=== PATIENT | female | born 1980 | race Hispanic/Latino ===

== ENCOUNTER 2018-01-07 09:24 | Emergency (ER) | payer OTHER, SELFPAY ==
[2018-01-07 09:25] VITALS: BP 105/62; PULSE 67; RESP 17; TEMP 36.8; O2SAT 98; BMI 29.8
--- NOTE | 2018-01-07 09:40 | EKG12_ITS ---
Test Reason : CP Blood Pressure : / mmHG Vent. Rate : 068 BPM Atrial Rate : 068 BPM P-R Int : 142 ms QRS Dur : 102 ms QT Int : 428 ms P-R-T Axes : 023 027 007 degrees QTc Int : 455 ms Normal sinus rhythm Normal ECG Confirmed by LUIS TELLO, RALEIGH ([id number]), index editor DUNCAN SCHNEIDER ([id number] on 01/09/2018 3:59:31 PM Referred By: COLBY/AMY Confirmed By:RALEIGH SMITH MD
[2018-01-07 10:02] VITALS: BP 105/75; BP 111/69; BP 112/73; PULSE 61; PULSE 73; PULSE 75
[2018-01-07] MEDS: 0.9% Normal Saline 1,000 ML 1000 ML IV ×2 (10:03)
[2018-01-07 10:08] LABS: Absolute Lymphocyte Count 1.85 X10^3/ul (0.83-4.51); Absolute Neutrophil Count 5.8 X10^3/uL (2.0-7.7); Basophil# 0.03 X10^3/uL; Basophil% 0.4 % (0-1); Eosinophil# 0.02 X10^3/uL; Eosinophils% 0.2 % (0-5); Hematocrit 36.3 % (37-47); Lymphocyte # 1.85 X10^3/ul (4.0); Lymphocyte % 22.8 % (19-41); Mean Corp Hgb Conc 33.1 g/gl (32-36); Mean Corpuscular Hgb 28.9 pg (27.0-32.0); Mean Corpuscular Volume 87.5 fL (81-99); Monocyte% 4.9 % (0-10); Neutrophil # 5.81 X10^3/uL (2.7-7.7); Neutrophil % 71.6 % (47-70); Platelet Count 199 K/mm3 (150-450); RBC Distribution Width SD 41.5 fl (35.1-43.9); Red Blood Count 4.15 M/mm3 (4.2-5.4); White Blood Count 8.1 K/mm3 (4.4-11.0)
[2018-01-07 10:11] LABS: POSITIVE COUNT NO; POSITIVE DIFFERENTIAL NO; POSITIVE MORPHOLOGY NO
[2018-01-07 10:21] LABS: Anion Gap 6 (5-15); BUN 14 mg/dL (7-18); BUN/Creat Ratio 23.6 RATIO (10-20); Calcium,Total 8.7 mg/dL (8.5-10.1); Chloride 109 mmol/L (98-107); Creatinine, Serum 0.59 mg/dL (0.55-1.02); EST Glomerular Filtration Rate 120 mL/min (>60); Est Glom Filt Rate - Afr Amer 145 mL/min (>60); Estimated Creatinine Clearance 101.25 ml/min; Glucose 94 mg/dL (74-106); Potassium 3.6 mmol/L (3.5-5.1); Sodium Level 141 mmol/L (136-145)
[2018-01-07 10:22] LABS: Pregnancy, Serum, hCG Quali. NEGATIVE Negative (0-9 Nonpreg)
--- NOTE | 2018-01-07 10:55 | ED.VISSUMM ---
- ER Visit Summary Date of Service: 01/07/18 Chief Complaint: Weakness in legs, syncope History of Present Illness: The patient is a [address] Matthew montes. 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 She denied any injuries. Patient reports that this episode was preceded by diaphoresis, nausea, mild shortness of breath, palpitations, and chest pain that was 6 out of 10 at worst. States chest pain lasted 3-4 minutes. She is not having any pain now. On review of systems patient planes of a headache that is 1 out of 10 severity and generalized weakness. She denies any other complaints. Physical Examination: Vitals: Stable. Afebrile. General: Well-nourished and well-developed. Head: Normocephalic atraumatic. Neck: Supple, no lymphadenopathy. No JVD. Nontender. Cardiovascular: Regular rate and rhythm. No murmurs. Respiratory: No respiratory distress. Clear to auscultation bilaterally. Abdominal: Soft, nontender, nondistended, normal bowel sounds. No guarding, rebound, or peritoneal signs. Back: Nontender. Extremities: Nontender, no edema. Skin: Normal color, no rash. Neurologic: Alert and oriented ?3. Cranial nerves II through XII are intact. Normal strength and sensation. Psych: Normal affect. Test Results: EKG is sinus at 60 with no acute changes. There is no old EKG for comparison. Troponin is negative. test negative. Chem-7 is more for chloride 109 and a BUN/creatinine ratio of 23.6. CBC is marked for hematocrit 36.3 and segmented for the 72. Emergency Department Course and Treatment: Patient had negative orthostatic vital signs. She was given 2 L normal saline and feels much improved. Treatment Plan: Patient be discharged instructions push fluids. Follow-up with her primary care physician, Dr. Matthew montes, in 1-2 days if not improving. Return to the emergency department for any worsening symptoms. Disposition: To home in improved and stable condition. Impression: 1. Dehydration. This note was generated with Tipstar[employer] software. It may contain incorrect words, spelling, and punctuation that were not noted in review of the chart prior to signing ED Disposition - Plan for ED Patient: Disposition: Home or Assisted Living Chief Complaint: Syncope Instructions: ED Dehydration Referrals: Morgan Saunders MD [Primary Care Provider] - 1-2 Days if not improving Print Language: Turkish
[2018-01-07 11:24] VITALS: BP 107/72; PULSE 60; RESP 18; O2SAT 98
== END 2018-01-07 11:27 | disposition home or self-care (01) ==
LOC: ED 09:51
PROVIDERS: Emergency Provider Emergency Medicine; Family Provider Family Medicine; PCP Family Medicine
DX: E86.0 Dehydration (principal)
CPT/HCPCS: 80048; 84484; 84703; 85025; 93005; 99285; J7030

== ENCOUNTER 2018-08-01 08:10 | Day surgery (SDC) | payer OTHER, SELFPAY ==
[2018-06-06 16:31] VITALS: BMI 29.8
--- NOTE | 2018-07-31 23:40 | HP.PCM_ITS ---
History and Physical Date of Admission: 08/01/18 HISTORY OF PRESENT ILLNESS 37 year old woman comes in today for evaluation of her painful recurrent keloid right earlobe and superior helical rim right ear. She states it has increased in size over the last several months. She denies any trauma or recent infection. She has had keloids excised from the right ear in the past, the most recent in March,. She has multiple other keloids on the left posterior earlobe, superior helical rim left ear, right upper lateral back, right upper medial back, left outer arm, and left shoulder that are stable and nontender at this time. She presents at this time for further evaluation and treatment. PAST MEDICAL HISTORY keloid of skin PAST SURGICAL HISTORY delivery delivered Cyst of ovary surgery History of excision of lesion ALLERGIES No Known Allergies MEDICATIONS None. FAMILY HISTORY Mother - Diabetes Father - Heart disease Brother - Heart disease SOCIAL HISTORY Smoking Status: Never smoker alcohol intake: never substance use type: does not use REVIEW OF SYSTEMS General - Denies fever, fatigue and weight loss. Eyes - Denies eye pain. ENT - Denies nasal congestion and sore throat. has painful keloid lesions on her bilateral ear lobes and helical rims CV - Denies chest pain or discomfort, fatigue, lightheadedness and shortness of breath with exertion. Resp - Denies cough and shortness of breath. GI - Denies nausea, vomiting, diarrhea and constipation. - Denies blood in urine and urinary frequency. MS - Denies joint pain, back pain, stiffness, muscle weakness and arthritis. Derm - Denies skin cancer. Has painful recurrent keloid lesions on right ear lobe and right superior helical rim. Has stable keloid left posterior ear lobe, left superior helical rim, left shoulder, right upper lateral back, right upper medial back, and left outer arm. The lesions on her ears were previously excised by Dr. Castle. The lesions on her back have been excised twice now, once in [place] and once by Dr. Castle with acellular dermal graft. Neuro - Denies headaches and weakness. Psych - Denies anxiety and depression. Endo - Denies excessive urination and excessive thirst. Heme - Denies bleeding and abnormal bruising. PHYSICAL EXAMINATION General: well developed, well nourished, in no acute distress. Head: normocephalic and atraumatic. No suspicious lesions noted Eyes: PERRL/EOM intact, conjunctiva and sclera clear. Ears: On her right ear lobe is a recurrent keloid that measures 3.2 cm. Tender to palpation. Has irregular borders. No ulceration. On the superior helical rim right ear is a recurrent keloid that measures 2.2 cm. Tender to palpation. Has irregular borders. No ulceration. On the left posterior ear lobe is a lesion that shows mild thickening. Nontender. Has a keloid component. No evidence of cellulitis, fluctuance, or purulent drainage. No ulceration. On the superior helical rim left ear is a lesion that shows mild thickening. Nontender. Has a keloid component. No evidence of cellulitis, fluctuance, or purulent drainage. No ulceration. Nose: No suspicious lesions noted Mouth: No suspicious lesions noted Neck: no masses, thyromegaly, or abnormal cervical nodes. No suspicious lesions noted Chest Wall: No suspicious lesions noted Lungs: clear bilaterally to auscultation. Heart: regular rate and rhythm. Msk: On her right upper medial back is a lesion that shows mild thickening. Nontender. Has a keloid component. No evidence of cellulitis, fluctuance or purulent drainage. No ulceration. On the right upper lateral back is a lesion that shows mild thickening. Nontender. Has a keloid component. No evidence of cellulitis, fluctuance or purulent drainage. No ulceration. Pulses: pulses normal in all 4 extremities. Extremities: no clubbing, cyanosis, edema, or deformity noted with normal full range of motion of all joints. On her left outer arm and left shoulder are lesions that show mild thickening. Nontender. Has a keloid component. No evidence of cellulitis, fluctuance or purulent drainage. No ulceration. Neurologic: cranial nerves II-XII grossly intact. Skin: no rashes Cervical Nodes: no significant adenopathy. Axillary Nodes: no significant adenopathy. Psych: alert and cooperative; normal mood and affect; normal attention span and concentration. ASSESSMENT 1. 3.2 cm painful recurrent keloid lesion right earlobe. 2. 2.2 cm painful recurrent keloid lesion superior helical rim right ear. 3. Stable keloids left posterior earlobe, superior helical rim left ear, right upper lateral back, right upper medial back, left outer arm, left shoulder. PLAN Her painful recurrent keloid on her right earlobe and superior helical rim right ear are enlarging in size and becoming more symptomatic. Recommend excision of these painful recurrent keloid and send them to Pathology for analysis to rule out carcinoma. Will also send tissue to Microbiology for culture. A positive culture will necessitate antibiotic therapy. Reconstruction will be with a skin substitute graft. I am hesitant to use an autograft for concerns of the donor site developing a keloid. The patient was informed of the risks and complications of the procedure including alternatives to surgery. These were discussed with the patient personally. The patient voices understanding and wishes to proceed. Some of the risks and complications were included in a form from the [employer]. Surgery will be done under general anesthesia on an outpatient basis. Postoperatively may consider Kenalog injection to help with minimizing recurrence in the future. Her other keloids are stable at this time. If they become symptomatic in the future, will consider excision at that time. These lesions resulted from previous piercing and trauma. Sometimes these enlarging lesions can have chronic infection component to it and so when we excise the lesions we send them to pathology for analysis to rule out carcinoma as well as to microbiology for culture. Any positive cultures will necessitate antibiotic therapy. I want to do one at a time to make sure the healing process is acceptable. Sometimes with painful keloid lesions, the resultant scarring is worse than the original scar. Sometimes with the painful keloid lesion, I would like to consider postoperative radiation therapy since she has had multiple excisions and multiple recurrences and nothing has worked. I will consider steroids postoperatively after the keloid has been removed to see if that minimizes recurrence. Patient will think about radiation therapy for her right ear and let me know. It would be coordinated at the time of the surgery. She has tried compression earrings in the past and found it difficult to keep them on so compliance has been suboptimal. Also a compression earring would be used for 6 months if she can keep them on. Patient was informed of the risks and complications of the procedure including alternatives to surgery. These were discussed with the patient personally. Patient voices understanding and wishes to proceed. Some of the risks and complications were included in a form from the [employer].
[2018-08-01] VITALS (7 sets, daily range): BP systolic 101–139; BP diastolic 66–84; PULSE 58–85; RESP 16; TEMP 36.6–37; O2SAT 99–100; BMI 29.7
--- NOTE | 2018-08-01 | SCAR_PTH ---
PATIENT: GERSON HELMS LOC: [facility] [place] U#:[id number] AGE/SX: 37/F ROOM: RE08/01/[address]: Dr. Chapincito Baldwin MD : 1980 BED: DIS: 08/01/2018 SPEC #: [id number] RECD: 08/01/18 15:15 STATUS: BRAEDEN ROBERTH #: [id number] PATRICE: 08/01/18 00:[address]: Chapincito Baldwin DEPT: SURGICAL PATHOLOGY RECD BY: Tylor Schrader ENTERED: 08/01/18 15:17 SP TYPE: Scar OTHR DR: Dr. Morgan Saunders MD Tissues: A - CICATRIX/SCAR B - CICATRIX/SCAR Procedures: Surgery Specimen Level III HEADER OPERATION: Excision painful recurrent keloid right earlobe and superior helical rim PRE-OP DIAGNOSIS: Painful recurrent keloid lesion right earlobe and right superior helical rim TISSUE SUBMITTED: A - Keloid lesion right earlobe, B - Keloid lesion superior helical rim right ear MICROSCOPIC DIAGNOSIS A. Right earlobe, keloid lesion, excisional biopsy: Dermal fibrosis, consistent with hypertrophic scar/keloid. B. Superior helical rim right ear lesion, keloid, excisional biopsy: Dermal fibrosis, consistent with hypertrophic scar/keloid. SOL:pablo 08/02/18 MICROSCOPIC DESCRIPTION Slides are reviewed. GROSS DESCRIPTION A - Received in fixative is one container labeled with the patient's name and designated keloid lesion right earlobe. The specimen consists of a polypoid piece of jeff-white skin measuring 4 x 2.5 x 1.5 cm. The specimen is inked, serially sectioned and reveals jeff, fibrous cut surfaces. Sports [employer] Writer sections are submitted in three cassettes. B - Received in fixative is one container labeled with the patient's name and designated keloid lesion superior helical rim right ear. The specimen consists of a polypoid piece of jeff-white skin measuring 2.5 x 2 x 1.5 cm. The specimen is inked, serially sectioned and reveals jeff, fibrous cut surfaces. The entire specimen is submitted in three cassettes. / SOL:pablo 08/01/18 TC:5 CPT: 94190 x2
[2018-08-01 08:31] LABS: Internal QC Validated? YES +Cl - CLEAR BKGD; Pregnancy, Urine Negative Negative
[2018-08-01] MEDS: Mupirocin Ointment 22gm Tube 1 APPLIC (12:08)
--- NOTE | 2018-08-01 12:19 | PCM.IMDPSTOP ---
Immediate Post-Op Note Date of Procedure: 08/01/18 Primary Surgeon/Physician: Chapincito Baldwin MD assistant field hockey coach: None Pre-Operative Diagnosis: 1. 3.2 cm painful recurrent keloid lesion right earlobe. 2. 2.2 cm painful recurrent keloid lesion superior helical rim right ear. Post-Operative Diagnosis: Same. Surgery/Procedure Performed:: 1. Excision 3.2 cm painful recurrent keloid lesion right earlobe with placement of Alloderm acellular dermal matrix graft reconstruction (1.7 cm2). 2. Excision and repair 2.2 cm painful recurrent keloid lesion including underlying cartilage superior helical rim right ear. Description of Surgical Findings:: 37 year old woman comes in today for evaluation of her painful recurrent keloid right earlobe and superior helical rim right ear. She states it has increased in size over the last several months. She denies any trauma or recent infection. She has had keloids excised from the right ear in the past, the most recent in March,. She has multiple other keloids on the left posterior earlobe, superior helical rim left ear, right upper lateral back, right upper medial back, left outer arm, and left shoulder that are stable and nontender at this time. After surgery she will proceed with postop radiation therapy. Today the patient underwent excision 3.2 cm painful recurrent keloid lesion right earlobe with placement of Alloderm acellular dermal matrix graft reconstruction (1.7 cm2) and excision and repair 2.2 cm painful recurrent keloid lesion including underlying cartilage superior helical rim right ear. I used Alloderm acellular dermal matrix graft, (Size 2 x 4 cm, Thickness 0.33-0.36 mm). Lot Number - [id number]. Expiration - September,. Estimated Blood Loss: 20 ml. Specimen's removed: 1. Painful recurrent keloid right earlobe to Pathology and Microbiology. 2. Painful recurrent keloid superior helical rim right ear to Pathology and Microbiology. Drains: None. Type of Anesthesia:: General - Admit VTE Documentation VTE Present on Admission: No VTE Mechan Device Prophylaxis: SCD's VTE Pharm Prophylaxis ordered?: No
--- NOTE | 2018-08-01 12:23 | OP.PN_ITS ---
Immediate Post-Op Note Date of Procedure: 08/01/18 Primary Surgeon/Physician: Chapincito Baldwin MD business asst: None Pre-Operative Diagnosis: 1. 3.2 cm painful recurrent keloid lesion right earlobe. 2. 2.2 cm painful recurrent keloid lesion superior helical rim right ear. Post-Operative Diagnosis: Same. Surgery/Procedure Performed:: 1. Excision 3.2 cm painful recurrent keloid lesion right earlobe with placement of Alloderm acellular dermal matrix graft reconstruction (1.7 cm2). 2. Excision and repair 2.2 cm painful recurrent keloid lesion including underlying cartilage superior helical rim right ear. Description of Surgical Findings:: 37 year old woman comes in today for evaluation of her painful recurrent keloid right earlobe and superior helical rim right ear. She states it has increased in size over the last several months. She denies any trauma or recent infection. She has had keloids excised from the right ear in the past, the most recent in March,. She has multiple other keloids on the left posterior earlobe, superior helical rim left ear, right upper lateral back, right upper medial back, left outer arm, and left shoulder that are stable and nontender at this time. After surgery she will proceed with postop radiation therapy. Today the patient underwent excision 3.2 cm painful recurrent keloid lesion right earlobe with placement of Alloderm acellular dermal matrix graft reconstruction (1.7 cm2) and excision and repair 2.2 cm painful recurrent keloid lesion including underlying cartilage superior helical rim right ear. I used Alloderm acellular dermal matrix graft, (Size 2 x 4 cm, Thickness 0.33- 0.36 mm). Lot Number - [id number]. Expiration - September,. Estimated Blood Loss: 20 ml. Specimen's removed: 1. Painful recurrent keloid right earlobe to Pathology and Microbiology. 2. Painful recurrent keloid superior helical rim right ear to Pathology and Microbiology. Drains: None. Type of Anesthesia:: General - Admit VTE Documentation VTE Present on Admission: No VTE Mechan Device Prophylaxis: SCD's VTE Pharm Prophylaxis ordered?: No
--- NOTE | 2018-08-01 12:26 | PCM.DC ---
You will use the following diet at home:: No restrictions Discharge Activity: May not drive while taking narcotic pain medications., May Shower - after the graft dressing is removed from right ear in the office., - - keep head elevated. no heavy lifting. May shower in (days): 5 - after the graft dressing is removed in the office. May resume sexual activity in: No Restrictions Weight Bearing Status: Weight bearing as tolerated Lifting Restrictions: 20 lbs. Keep extremity elevated above heart level: - - elevate head. Call your doctor if your incision/area has: Continuous Slow Oozing, Sudden Increased Bleeding, Increased Pain/ Swelling, Increased Redness, Foul Smelling Discharge, Swelling at the incision site Call your doctor if you observe: Fever of 101 or Higher, Coldness, Increased Pain, Shortness of breath, Chest pain, Calf discomfort, Uncontrolled pain Suture Line Care: - - apply antibiotic ointment to suture line daily. Change Dressing in (Days):: 5 - will change graft dressing in office. Remove Dressing in (days):: 2 - may remove the outer gauze in two days. Leave the graft dressing alone. Cleanse incision/area with: - - may get incisions wet in the shower after the graft dressing is removed in the office. Allergies/Adverse Reactions: Allergies No Known Allergies Allergy (Verified 07/25/18 08:13) Medications to take at Discharge Clindamycin HCl [Cleocin HCl] 300 mg PO TID #21 cap 08/01/18 Oxycodone HCl/Acetaminophen [Percocet 5/325] 1 tab PO 4X/DAY PRN PRN 7 Days #30 tab 08/01/18 The following prescriptions were given: Oxycodone HCl/Acetaminophen [Percocet 5/325] 1 tab PO 4X/DAY PRN PRN 7 Days #30 tab PRN Reason: Pain Clindamycin HCl [Cleocin HCl] 300 mg PO TID #21 cap Primary Care Physician: Morgan Saunders MD [Primary Care Provider] - Test Results: Test results from this visit will be discussed in further detail at your follow-up appointment, if applicable. Please Follow Up With: Chapincito Baldwin MD When: one week. call [phone] for appt. Please Follow Up With: radiation therapy When: will begin radiation therapy postop. Proposed Discharge Date: 08/01/18
--- NOTE | 2018-08-01 12:30 | DCINST_ITS ---
You will use the following diet at home:: No restrictions Discharge Activity: May not drive while taking narcotic pain medications., May Shower - after the graft dressing is removed from right ear in the office., - - keep head elevated. no heavy lifting. May shower in (days): 5 - after the graft dressing is removed in the office. May resume sexual activity in: No Restrictions Weight Bearing Status: Weight bearing as tolerated Lifting Restrictions: 20 lbs. Keep extremity elevated above heart level: - - elevate head. Call your doctor if your incision/area has: Continuous Slow Oozing, Sudden Increased Bleeding, Increased Pain/ Swelling, Increased Redness, Foul Smelling Discharge, Swelling at the incision site Call your doctor if you observe: Fever of 101 or Higher, Coldness, Increased Pain, Shortness of breath, Chest pain, Calf discomfort, Uncontrolled pain Suture Line Care: - - apply antibiotic ointment to suture line daily. Change Dressing in (Days):: 5 - will change graft dressing in office. Remove Dressing in (days):: 2 - may remove the outer gauze in two days. Leave t he graft dressing alone. Cleanse incision/area with: - - may get incisions wet in the shower after the graft dressing is removed in the office. Allergies/Adverse Reactions: Allergies No Known Allergies Allergy (Verified 07/25/18 08:13) Medications to take at Discharge Clindamycin HCl [Cleocin HCl] 300 mg PO TID #21 cap 08/01/18 Oxycodone HCl/Acetaminophen [Percocet 5/325] 1 tab PO 4X/DAY PRN PRN 7 Days #30 tab 08/01/18 The following prescriptions were given: Oxycodone HCl/Acetaminophen [Percocet 5/325] 1 tab PO 4X/DAY PRN PRN 7 Days #30 tab PRN Reason: Pain Clindamycin HCl [Cleocin HCl] 300 mg PO TID #21 cap Primary Care Physician: Morgan Saunders MD [Primary Care Provider] - Test Results: Test results from this visit will be discussed in further detail at your follow- up appointment, if applicable. Please Follow Up With: Chapincito Baldwin MD When: one week. call [phone] for appt. Please Follow Up With: radiation therapy When: will begin radiation therapy postop. Proposed Discharge Date: 08/01/18
--- NOTE | 2018-08-01 18:37 | PCM.OPRPT ---
Report of Operation Date of Procedure: 08/01/18 Pre-Operative Diagnosis: 1. 3.2 cm painful recurrent keloid lesion right earlobe. 2. 2.2 cm painful recurrent keloid lesion superior helical rim right ear. Post-Operative Diagnosis: Same. Surgery/Procedure Performed:: 1. Excision 3.2 cm painful recurrent keloid lesion right earlobe with placement of Alloderm acellular dermal matrix graft reconstruction (1.7 cm2). 2. Excision and repair 2.2 cm painful recurrent keloid lesion including underlying cartilage superior helical rim right ear. Description of Surgical Findings:: 37 year old woman comes in today for evaluation of her painful recurrent keloid right earlobe and superior helical rim right ear. She states it has increased in size over the last several months. She denies any trauma or recent infection. She has had keloids excised from the right ear in the past, the most recent in March,. She has multiple other keloids on the left posterior earlobe, superior helical rim left ear, right upper lateral back, right upper medial back, left outer arm, and left shoulder that are stable and nontender at this time. After surgery she will proceed with postop radiation therapy. Patient was informed of the risks and complications of the procedure including alternatives to surgery. These were discussed with the patient personally. Patient voices understanding and wishes to proceed. Some of the risks and complications were included in a form from the [employer]. I used Alloderm acellular dermal matrix graft, (Size 2 x 4 cm, Thickness 0.33-0.36 mm). Lot Number - [id number]. Expiration - September,. 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 Painful recurrent keloid right earlobe to Pathology and Microbiology. 2. Painful recurrent keloid superior helical rim right ear to Pathology and Microbiology. Drains: None. Estimated Blood Loss (mL): 20 ml. Description of Procedure: Patient was taken to OR in supine position and was placed under general anesthesia. The right ear was prepped and draped in the usual fashion. SCD's were placed for DVT prophylaxis. Perioperative antibiotics were given intravenously. Using xylocaine with epinephrine, the right ear was infiltrated with a regional periauricular block for postop pain relief. After waiting 5 minutes for the anesthetic to take effect, I excised the painful recurrent keloid on the right earlobe. Some of the keloid extended onto the cheek inferior to the earlobe. Extensive scarring was seen as I dissected the keloid off the surrounding subcutaneous tissue. I excised some of the deeper tissue to be sent to Microbiology for culture. The rest of the lesion will be sent to Pathology for analysis to rule out carcinoma. Hemostasis was obtained with electrocautery. Some of the earlobe was approximated with 5-0 Monocryl interrupted sutures for the deep dermis and subcutaneous tissue. The earlobe was partially approximated with 5-0 Monocryl simple interrupted and vertical mattress interrupted sutures. The remaining defect was 1.3 x 1.3 cm or 1.7 cm2 which extended onto the inferior cheek. This defect was closed with Alloderm acellular dermal matrix graft. The inferior aspect of the defect was closed in a layered fashion with 5-0 Monocryl interrupted sutures for the deep dermis and subcutaneous tissue. The skin was approximated with 6-0 Prolene simple interrupted sutures. The Alloderm was secured to the defect with 5-0 Monocryl simple interrupted sutures. 5-0 Monocryl sutures were also used for central quilting stabilization. Antibiotic ointment to the graft followed by cotton ball soaked in saline and secured to the skin edge with 4-0 Nylon tie over stent suture dressing. Antibiotic ointment was applied to the earlobe and cheek suture lines. I then excised the painful recurrent keloid on the superior helical rim right ear. There was adherence to the underlying cartilage and some of the cartilage was included with the excision. Some of the deeper tissue was sent to Microbiology for culture. The rest of the lesion will be sent to Pathology for analysis to rule out carcinoma. Hemostasis was obtained with electrocautery. I then closed the defect superior helical rim right ear with 5-0 Monocryl interrupted sutures. Some additional cartilage was excised to aid in wound closure with minimal tension. With the exposed cartilage, placement of a graft over the cartilage would have been difficult to heal which prompted me to remove additional cartilage to help with wound closure. Antibiotic ointment was applied to the suture line. There is a mild defect on the superior helical rim which should be less noticeable than the painful recurrent keloid. Patient tolerated the procedure well and was sent to PACU in satisfactory condition. Patient will be sent home on antibiotics and pain medication. She will keep her head elevated during the initial postoperative period. Patient will followup in a week for a wound check and takedown of the graft dressing and for discussion of the pathology report and the microbiology report and for removal of the sutures. She is scheduled to begin postop radiation therapy tomorrow. Once pain and swelling have subsided, will apply compression ear ring. Grafts/Implants Used: Alloderm acellular dermal matrix graft. - Complications None. - Admit VTE Documentation VTE Present on Admission: No VTE Mechan Device Prophylaxis: SCD's VTE Pharm Prophylaxis ordered?: No Code Visit Surgery Charges CPT - 57898 ICD-10 - T75.89xS, L91.0 95547 T75.89xS, L91.0 30345 T75.89xS, L91.0
--- NOTE | 2018-08-02 22:38 | OP.PCM_ITS ---
Report of Operation Date of Procedure: 08/01/18 Pre-Operative Diagnosis: 1. 3.2 cm painful recurrent keloid lesion right earlobe. 2. 2.2 cm painful recurrent keloid lesion superior helical rim right ear. Post-Operative Diagnosis: Same. Surgery/Procedure Performed:: 1. Excision 3.2 cm painful recurrent keloid lesion right earlobe with placement of Alloderm acellular dermal matrix graft reconstruction (1.7 cm2). 2. Excision and repair 2.2 cm painful recurrent kelo id lesion including underlying cartilage superior helical rim right ear. Description of Surgical Findings:: 37 year old woman comes in today for evaluation of her painful recurrent keloid right earlobe and superior helical rim right ear. She states it has increased in size over the last several months. She denies any trauma or recent infection. She has had keloids excised from the right ear in the past, the most recent in March,. She has multiple other keloids on the left posterior earlobe, superior helical rim left ear, right upper lateral back, right upper medial back, left outer arm, and left shoulder that are stable and nontender at this time. After surgery she will proceed with postop radiation therapy. Patient was informed of the risks and complications of the procedure including alternatives to surgery. These were discussed with the patient personally. Patient voices understanding and wishes to proceed. Some of the risks and complications were included in a form from the [employer]. I used Alloderm acellular dermal matrix graft, (Size 2 x 4 cm, Thickness 0.33- 0.36 mm). Lot Number - [id number]. Expiration - September,. 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 Painful recurrent keloid right earlobe to Pathology and Microbiology. 2. Painful recurrent keloid superior helical rim right ear to Pathology and Microbiology. Drains: None. Estimated Blood Loss (mL): 20 ml. Description of Procedure: Patient was taken to OR in supine position and was placed under general anesthesia. The right ear was prepped and draped in the usual fashion. SCD's were placed for DVT prophylaxis. Perioperative antibiotics were given intravenously. Using xylocaine with epinephrine, the right ear was infiltrated with a regional periauricular block for postop pain relief. After waiting 5 minutes for the anesthetic to take effect, I excised the painful recurrent keloid on the right earlobe. Some of the keloid extended onto the cheek inferior to the earlobe. Extensive scarring was seen as I dissected the keloid off the surrounding subcutaneous tissue. I excised some of the deeper tissue to be sent to Microbiology for culture. The rest of the lesion will be sent to Pathology for analysis to rule out carcinoma. Hemostasis was obtained with electrocautery. Some of the earlobe was approximated with 5-0 Monocryl interrupted sutures for the deep dermis and subcutaneous tissue. The earlobe was partially approximated with 5-0 Monocryl simple interrupted and vertical mattress interrupted sutures. The remaining defect was 1.3 x 1.3 cm or 1.7 cm2 which extended onto the inferior cheek. This defect was closed with Alloderm acellular dermal matrix graft. The inferior aspect of the defect was closed in a layered fashion with 5-0 Monocryl interrupted sutures for the deep dermis and subcutaneous tissue. The skin was approximated with 6-0 Prolene simple interrupted sutures. The Alloderm was secured to the defect with 5-0 Monocryl simple interrupted sutures. 5-0 Monocryl sutures were also used for central quilting stabilization. Antibiotic ointment to the graft followed by cotton ball soaked in saline and secured to the skin edge with 4-0 Nylon tie over stent suture dressing. Antibiotic ointment was applied to the earlobe and cheek suture lines. I then excised the painful recurrent keloid on the superior helical rim right ear. There was adherence to the underlying cartilage and some of the cartilage was included with the excision. Some of the deeper tissue was sent to Microbiology for culture. The rest of the lesion will be sent to Pathology for analysis to rule out carcinoma. Hemostasis was obtained with electrocautery. I then closed the defect superior helical rim right ear with 5-0 Monocryl interrupted sutures. Some additional cartilage was excised to aid in wound closure with minimal tension. With the exposed cartilage, placement of a graft over the cartilage would have been difficult to heal which prompted me to remove additional cartilage to help with wound closure. Antibiotic ointment was applied to the suture line. There is a mild defect on the superior helical rim which should be less noticeable than the painful recurrent keloid. Patient tolerated the procedure well and was sent to PACU in satisfactory condition. Patient will be sent home on antibiotics and pain medication. She will keep her head elevated during the initial postoperative period. Patient will followup in a week for a wound check and takedown of the graft dressing and for discussion of the pathology report and the microbiology report and for removal of the sutures. She is scheduled to begin postop radiation therapy tomorrow. Once pain and swelling have subsided, will apply compression ear ring. Grafts/Implants Used: Alloderm acellular dermal matrix graft. - Complications None. - Admit VTE Documentation VTE Present on Admission: No VTE Mechan Device Prophylaxis: SCD's VTE Pharm Prophylaxis ordered?: No Code Visit Surgery Charges CPT - 31748 ICD-10 - T75.89xS, L91.0 94489 T75.89xS, L91.0 67958 T75.89xS, L91.0
== END 2018-08-01 14:18 | disposition home or self-care (01) ==
LOC: SDC 08:13 → AC 08:14
PROVIDERS: Anesthesiology; Family Provider Family Medicine; PCP Family Medicine; Referring Provider Surgery; Visit Provider Surgery
PROC: (CPT 11443; principal; 2018-08-01 09:40)
DX: L91.0 Hypertrophic scar (principal)
CPT/HCPCS: 00300; 11443; 15004; 15275; 69110; 81025; 87070; 87075; 87077; 87102; 87186; 87205; 87206; 88304; J7120; J2405

== ENCOUNTER 2018-11-12 08:17 | Day surgery (SDC) | payer OTHER, SELFPAY ==
[2018-10-10 16:37] VITALS: BMI 29.7
--- NOTE | 2018-11-11 21:54 | HP.PCM_ITS ---
History and Physical Date of Admission: 11/12/18 HISTORY OF PRESENT ILLNESS 37 year old woman comes in today for evaluation of her painful recurrent keloid left posterior earlobe and superior helical rim left ear. She states it has increased in size over the last several months. She denies any trauma or recent infection. She has had keloids excised from the left ear in the past, the most recent on 09/07/16. She has multiple other keloids on the right upper lateral back, right upper medial back, left outer arm, and left shoulder that are stable and nontender at this time. In July,, she recently had excision of painful recurrent keloid lesion right earlobe and excision painful recurrent keloid lesion superior helical rim right ear. She received postop radiation therapy and tolerated it. Since that surgery, her keloids on her left ear have increased in size with increasing symptomatology. She presents today for excision of these painful recurrent keloid lesions left ear. Once again, she will receive postop radiation therapy for a few doses. PAST MEDICAL HISTORY keloid of skin PAST SURGICAL HISTORY delivery delivered Cyst of ovary surgery excision of keloids ALLERGIES No Known Allergies MEDICATIONS None. FAMILY HISTORY Mother - Diabetes Father - Heart disease Brother - Heart disease SOCIAL HISTORY Smoking Status: Never smoker alcohol intake: never substance use type: does not use REVIEW OF SYSTEMS General - Denies fever, fatigue and weight loss. Eyes - Denies eye pain. ENT - Denies nasal congestion and sore throat. has painful keloid lesions on her bilateral ear lobes and helical rims CV - Denies chest pain or discomfort, fatigue, lightheadedness and shortness of breath with exertion. Resp - Denies cough and shortness of breath. GI - Denies nausea, vomiting, diarrhea and constipation. - Denies blood in urine and urinary frequency. MS - Denies joint pain, back pain, stiffness, muscle weakness and arthritis. Derm - Denies skin cancer. Has painful recurrent keloid lesions on left posterior ear lobe and left superior helical rim. Has stable keloid left shoulder, right upper lateral back, right upper medial back, and left outer arm. The lesions on her ears were previously excised by Dr. Castle. The lesions on her back have been excised twice now, once in [place] and once by Dr. Castle with acellular dermal graft. Neuro - Denies headaches and weakness. Psych - Denies anxiety and depression. Endo - Denies excessive urination and excessive thirst. Heme - Denies bleeding and abnormal bruising. PHYSICAL EXAMINATION General: well developed, well nourished, in no acute distress. Head: normocephalic and atraumatic. No suspicious lesions noted Eyes: PERRL/EOM intact, conjunctiva and sclera clear. Ears: On her right ear lobe, the acellular dermal graft has healed with good contour. The right ear incisions are dry and intact with good contour. There is no evidence of infection (no pain, no redness, no swelling, no drainage). There is some surrounding skin discoloration to the these areas from recent radiation therapy. On the left posterior ear lobe is an enlarging lesion that measures 2 cm. Mild tenderness to palpation. Has a keloid component. No evidence of cellulitis, fluctuance, or purulent drainage. No ulceration. On the superior helical rim left ear is an enlarging lesion that measures 2 cm. Mild tenderness to palpation. Has a keloid component. No evidence of cellulitis, fluctuance, or purulent drainage. No ulceration. Nose: No suspicious lesions noted Mouth: No suspicious lesions noted Neck: no masses, thyromegaly, or abnormal cervical nodes. No suspicious lesions noted Chest Wall: No suspicious lesions noted Lungs: clear bilaterally to auscultation. Heart: regular rate and rhythm. Msk: On her right upper medial back is a lesion that shows mild thickening. Nontender. Has a keloid component. No evidence of cellulitis, fluctuance or purulent drainage. No ulceration. On the right upper lateral back is a lesion that shows mild thickening. Nontender. Has a keloid component. No evidence of cellulitis, fluctuance or purulent drainage. No ulceration. Pulses: pulses normal in all 4 extremities. Extremities: no clubbing, cyanosis, edema, or deformity noted with normal full range of motion of all joints. On her left outer arm and left shoulder are lesions that show mild thickening. Nontender. Has a keloid component. No evidence of cellulitis, fluctuance or purulent drainage. No ulceration. Neurologic: cranial nerves II-XII grossly intact. Skin: no rashes Cervical Nodes: no significant adenopathy. Axillary Nodes: no significant adenopathy. Psych: alert and cooperative; normal mood and affect; normal attention span and concentration. ASSESSMENT 1. 2 cm painful recurrent keloid lesion left posterior earlobe. 2. 2 cm painful recurrent keloid lesion superior helical rim left ear. 3. Stable keloids right upper lateral back, right upper medial back, left outer arm, left shoulder. 4. s/p excision painful recurrent keloid right earlobe and superior helical rim right ear. PLAN Her painful recurrent keloid on her left posterior earlobe and superior helical rim left ear are enlarging in size and becoming more symptomatic. Recommend excision of these painful recurrent keloid and send them to Pathology for analysis to rule out carcinoma. Will also send tissue to Microbiology for culture. A positive culture will necessitate antibiotic therapy. Reconstru ction will be with a skin substitute graft. I am hesitant to use an autograft for concerns of the donor site developing a keloid. The patient was informed of the risks and complications of the procedure including alternatives to surgery. These were discussed with the patient personally. The patient voices understanding and wishes to proceed. Some of the risks and complications were included in a form from the [employer]. Surgery will be done under general anesthesia on an outpatient basis. Postoperatively may consider Kenalog injection to help with minimizing re currence in the future. Her other keloids are stable at this time. If they become symptomatic in the future, will consider excision at that time. These lesions resulted from previous piercing and trauma. Sometimes these enlarging lesions can have chronic infection component to it and so when we excise the lesions we send them to pathology for analysis to rule out carcinoma as well as to microbiology for culture. Any positive cultures will necessitate antibiotic therapy. I want to do one at a time to make sure the healing process is acceptable. Sometimes with painful keloid lesions, the resultant scarring is worse than the original scar. Sometimes with the painful keloid lesion, I would like to consider postoperative radiation therapy since she has had multiple excisions and multiple recurrences and nothing has worked. I will consider steroids postoperatively after the keloid has been removed to see if that minimizes recurrence. Patient wants to proceed with radiation therapy for her left ear. It would be coordinated at the time of the surgery. She recently had radiation therapy after excision of her keloids right ear back in July,, and tolerated it. She has tried compression earrings in the past and found it difficult to keep them on so compliance has been suboptimal. Also a compression earring would be used for 6 months if she can keep them on. Patient was informed of the risks and complications of the procedure including alternatives to surgery. These were discussed with the patient personally. Patient voices understanding and wishes to proceed. Some of the risks and complications were included in a form from the [employer] [employer].
[2018-11-12] VITALS (9 sets, daily range): BP systolic 96–111; BP diastolic 63–70; PULSE 59–75; RESP 14–18; TEMP 36.3–37; O2SAT 96–100; BMI 28.8
[2018-11-12 08:51] LABS: Internal QC Validated? YES +Cl - CLEAR BKGD; Pregnancy, Urine Negative Negative
--- NOTE | 2018-11-12 09:50 | LES_PTH ---
PATIENT: GERSON HELMS LOC: [facility] U#:[id number] AGE/SX: 37/F ROOM: RE11/12/[address]: Dr. Chapincito Baldwin MD : 1980 BED: DIS: 11/12/2018 SPEC #: [id number] RECD: 11/12/18 13:26 STATUS: BRAEDEN ROBERTH #: [id number] PATRICE: 11/12/18 09:[address]: Chapincito Baldwin DEPT: SURGICAL PATHOLOGY RECD BY: Nii Nugent ENTERED: 11/12/18 13:44 SP TYPE: Lesion OTHR DR: Dr. Morgan Saunders MD Tissues: A - Skin of external ear, NOS B - Skin of external ear, NOS Procedures: Surgery Specimen Level IV HEADER OPERATION: Excision painful recurrent keloid left earlobe with placement PRE-OP DIAGNOSIS: 2 cm painful recurrent keloid lesion left posterior earlobe; 2 cm painful recurrent keloid lesion superior helical rim left ear. TISSUE SUBMITTED: A. Recurrent keloid lesion left posterior earlobe, B. Recurrent keloid lesion, superior helical rim left ear MICROSCOPIC DIAGNOSIS A. Lesion of left posterior earlobe, excision: Hypertrophic scar (keloid). B. Skin lesion of right left ear helical rim, biopsy: Hypertrophic scar (keloid). AM:pablo 11/13/18 MICROSCOPIC DESCRIPTION Slides are reviewed. GROSS DESCRIPTION A - Received in fixative is one container labeled with the patient's name and designated recurrent keloid lesion left posterior earlobe. The specimen consists of an irregular fragment of jeff skin with attached indurated pink-white soft tissue. The specimen measures 3 x 1.2 x 1 cm. The specimen is bisected and totally submitted in one cassette. B - Received in fixative is one container labeled with the patient's name and designated recurrent keloid lesion superior helical rim left ear. The specimen consists of an irregular fragment of jeff skin with attached indurated pink-white soft tissue. The specimen measures 2 x 1 x 1 cm. The specimen is bisected and totally submitted in one cassette. / AM:pablo 11/12/18 TC:5 CPT: 82865 x2
[2018-11-12] MEDS: Mupirocin Ointment 22gm Tube 1 APPLIC (12:20)
--- NOTE | 2018-11-12 12:39 | PCM.OPRPT ---
Report of Operation Date of Procedure: 11/12/18 Pre-Operative Diagnosis: 1. 2 cm painful recurrent keloid lesion left posterior earlobe. 2. 2 cm painful recurrent keloid lesion superior helical rim left ear. 3. Stable keloids right upper lateral back, right upper medial back, left outer arm, left shoulder. 4. s/p excision painful recurrent keloid right earlobe and superior helical rim right ear. Post-Operative Diagnosis: Same. Surgery/Procedure Performed:: 1. Excision 2 cm painful recurrent keloid lesion left posterior earlobe with extension to anterior earlobe. 2. Reconstruction posterior earlobe with Alloderm acellular dermal matrix graft (5 cm2). 3. Reconstruction anterior earlobe with rhomboid transposition skin flap (1.28 cm2). 4. Excision 2 cm painful recurrent keloid lesion superior helical rim left ear. 5. Reconstruction with Alloderm acellular dermal matrix graft (2 cm2). Description of Surgical Findings:: 37 year old woman comes in today for evaluation of her painful recurrent keloid left posterior earlobe and superior helical rim left ear. She states it has increased in size over the last several months. She denies any trauma or recent infection. She has had keloids excised from the left ear in the past, the most recent on 09/07/16. She has multiple other keloids on the right upper lateral back, right upper medial back, left outer arm, and left shoulder that are stable and nontender at this time. In July,, she recently had excision of painful recurrent keloid lesion right earlobe and excision painful recurrent keloid lesion superior helical rim right ear. She received postop radiation therapy and tolerated it. Since that surgery, her keloids on her left ear have increased in size with increasing symptomatology. She presents today for excision of these painful recurrent keloid lesions left ear. Once again, she will receive postop radiation therapy for a few doses. Patient was informed of the risks and complications of the procedure including alternatives to surgery. These were discussed with the patient personally. Patient voices understanding and wishes to proceed. Some of the risks and complications were included in a form from the [employer]. IV Fluids - 1300 ml. I used Alloderm acellular dermal matrix graft, (Size 2 x 4 cm, Thickness 1.04 - 2.28 mm). Lot Number - [id number] Expiration - July,. Size of graft left posterior earlobe - 2 x 2.5 cm. Size of graft superior helical rim left ear - 2 x 1 cm. chief dietitian: None Type of Anesthesia:: General Specimen's removed: 1. Painful recurrent keloid lesion left posterior earlobe to Pathology and Microbiology. 2. Painful recurrent keloid lesion superior helical rim left ear to Pathology and Microbiology. Drains: None. Estimated Blood Loss (mL): 10 ml. Fluids Replaced: 1300 ml IV Fluids. Description of Procedure: Patient was taken to OR in supine position and was placed under general anesthesia. The left ear was prepped and draped in the usual fashion. SCD's were placed for DVT prophylaxis. Perioperative antibiotics were given intravenously. Using xylocaine with epinephrine, the left ear was infiltrated with a regional periauricular block for postop pain relief. After waiting 5 minutes for the anesthetic to take effect, I excised the painful recurrent keloid on the left posterior earlobe. Extensive scarring was seen as I dissected the keloid off the surrounding subcutaneous tissue. I excised some of the deeper tissue to be sent to Microbiology for culture. The rest of the lesion will be sent to Pathology for analysis to rule out carcinoma. Hemostasis was obtained with electrocautery. The keloid lesion extended onto the anterior aspect of the earlobe. The anterior defect measured 0.8 x 0.8 cm. This anterior defect was reconstructed with a rhomboid transposition skin flap. The flap was designed adjacent to the anterior defect. Incisions were made and the rhomboid flap was transposed into the defect with minimal tension and minimal distortion. The flap wound was closed in a layered fashion with 5-0 Monocryl interrupted sutures for the deep dermis and subcutaneous tissue. The skin was approximated with 6-0 Prolene simple interrupted sutures. The size of the defect and the size of the flap needed to close the anterior defect was 1.28 cm2. The remaining posterior defect was 2 x 2.5 cm or 5 cm2. This defect was closed with Alloderm acellular dermal matrix graft. The Alloderm was secured to the defect with 5-0 Monocryl simple interrupted sutures. 5-0 Monocryl sutures were also used for central quilting stabilization. Antibiotic ointment was applied to the graft followed by gauze dressing. I then excised the painful recurrent keloid on the superior helical rim left ear. There was no adherence to the underlying cartilage. Some of the deeper tissue was sent to Microbiology for culture. The rest of the lesion will be sent to Pathology for analysis to rule out carcinoma. Hemostasis was obtained with electrocautery. The defect was 2 x 1 cm or 2 cm2. This defect was closed with Alloderm acellular dermal matrix graft. The Alloderm was secured to the defect with 5-0 Monocryl simple interrupted sutures. 5-0 Monocryl sutures were also used for central quilting stabilization. Antibiotic ointment was applied to the graft followed by gauze dressing. Patient tolerated the procedure well and was sent to PACU in satisfactory condition. Patient will be sent home on antibiotics and pain medication. She will keep her head elevated during the initial postoperative period. Patient will followup in a week for a wound check and for discussion of the pathology report and the microbiology report and for removal of the sutures. She is scheduled to begin postop radiation therapy tomorrow. Once pain and swelling have subsided, she may apply compression ear ring. She states she has tried compression ear rings in the past and had trouble keeping them on her ear. Grafts/Implants Used: Alloderm acellular dermal matrix graft. - Complications None. - Admit VTE Documentation VTE Present on Admission: No VTE Mechan Device Prophylaxis: SCD's VTE Pharm Prophylaxis ordered?: No Code Visit Surgery Charges CPT - 01435 ICD-10 - T75.89xS, L91.0 78587 T75.89xS, L91.0 09859 T75.89xS, L91.0 32816 T75.89xS, L91.0 83043 T75.89xS, L91.0
--- NOTE | 2018-11-12 12:44 | OP.PCM_ITS ---
Report of Operation Date of Procedure: 11/12/18 Pre-Operative Diagnosis: 1. 2 cm painful recurrent keloid lesion left posterior earlobe. 2. 2 cm painful recurrent keloid lesion superior helical rim left ear. 3. Stable keloids right upper lateral back, right upper medial back, left outer arm, left shoulder. 4. s/p excision painful recurrent keloid right earlobe and superior helical rim right ear. Post-Operative Diagnosis: Same. Surgery/Procedure Performed:: 1. Excision 2 cm painful recurrent keloid lesion left posterior earlobe with extension to anterior earlobe. 2. Reconstruction posterior earlobe with Alloderm acellular dermal matrix graft (5 cm2). 3. Reconstruction anterior earlobe with rhomboid transposition skin flap (1.28 cm2). 4. Excision 2 cm painful recurrent keloid lesion superior helical rim left ear. 5. Reconstruction with Alloderm acellular dermal matrix graft (2 cm2). Description of Surgical Findings:: 37 year old woman comes in today for evaluation of her painful recurrent keloid left posterior earlobe and superior helical rim left ear. She states it has increased in size over the last several months. She denies any trauma or recent infection. She has had keloids excised from the left ear in the past, the most recent on 09/07/16. She has multiple other keloids on the right upper lateral back, right upper medial back, left outer arm, and left shoulder that are stable and nontender at this time. In July,, she recently had excision of painful recurrent keloid lesion right earlobe and excision painful recurrent keloid lesion superior helical rim right ear. She received postop radiation therapy and tolerated it. Since that surgery, her keloids on her left ear have increased in size with increasing symptomatology. She presents today for excision of these painful recurrent keloid lesions left ear. Once again, she will receive postop radiation therapy for a few doses. Patient was informed of the risks and complications of the procedure including alternatives to surgery. These were discussed with the patient personally. Patient voices understanding and wishes to proceed. Some of the risks and complications were included in a form from the [employer]. IV Fluids - 1300 ml. I used Alloderm acellular dermal matrix graft, (Size 2 x 4 cm, Thickness 1.04 - 2.28 mm). Lot Number - [id number] Expiration - July,. Size of graft left posterior earlobe - 2 x 2.5 cm. Size of graft superior helical rim left ear - 2 x 1 cm. senior energy analyst: None Type of Anesthesia:: General Specimen's removed: 1. Painful recurrent keloid lesion left posterior earlobe to Pathology and Microbiology. 2. Painful recurrent keloid lesion superior helical rim left ear to Pathology and Microbiology. Drains: None. Estimated Blood Loss (mL): 10 ml. Fluids Replaced: 1300 ml IV Fluids. Description of Procedure: Patient was taken to OR in supine position and was placed under general anesthesia. The left ear was prepped and draped in the usual fashion. SCD's were placed for DVT prophylaxis. Perioperative antibiotics were given intravenously. Using xylocaine with epinephrine, the left ear was infiltrated with a regional periauricular block for postop pain relief. After waiting 5 minutes for the anesthetic to take effect, I excised the painful recurrent keloid on the left posterior earlobe. Extensive scarring was seen as I dissected the keloid off the surrounding subcutaneous tissue. I excised some of the deeper tissue to be sent to Microbiology for culture. The rest of the lesion will be sent to Pathology for analysis to rule out carcinoma. Hemostasis was obtained with electrocautery. The keloid lesion extended onto the anterior aspect of the earlobe. The anterior defect measured 0.8 x 0.8 cm. This anterior defect was reconstructed with a rhomboid transposition skin flap. The flap was designed adjacent to the anterior defect. Incisions were made and the rhomboid flap was transposed into the defect with minimal tension and minimal d istortion. The flap wound was closed in a layered fashion with 5-0 Monocryl interrupted sutures for the deep dermis and subcutaneous tissue. The skin was approximated with 6-0 Prolene simple interrupted sutures. The size of the defect and the size of the flap needed to close the anterior defect was 1.28 cm2. The remaining posterior defect was 2 x 2.5 cm or 5 cm2. This defect was closed with Alloderm acellular dermal matrix graft. The Alloderm was secured to the defect with 5-0 Monocryl simple interrupted sutures. 5-0 Monocryl sutures were also used for central quilting stabilization. Antibiotic ointment was applied to the graft followed by gauze dressing. I then excised the painful recurrent keloid on the superior helical rim left ear. There was no adherence to the underlying cartilage. Some of the deeper tissue was sent to Microbiology for culture. The rest of the lesion will be sent to Pathology for analysis to rule out carcinoma. Hemostasis was obtained with electrocautery. The defect was 2 x 1 cm or 2 cm2. This defect was closed with Alloderm acellular dermal matrix graft. The Alloderm was secured to the defect with 5-0 Monocryl simple interrupted sutures. 5-0 Monocryl sutures were also used for central quilting stabilization. Antibiotic ointment was applied to the graft followed by gauze dressing. Patient tolerated the procedure well and was sent to PACU in satisfactory condition. Patient will be sent home on antibiotics and pain medication. She will keep her head elevated during the initial postoperative period. Patient will followup in a week for a wound check and for discussion of the pathology report and the microbiology report and for removal of the sutures. She is scheduled to begin postop radiation therapy tomorrow. Once pain and swelling have subsided, she may apply compression ear ring. She states she has tried compression ear rings in the past and had trouble keeping them on her ear. Grafts/Implants Used: Alloderm acellular dermal matrix graft. - Complications None. - Admit VTE Documentation VTE Present on Admission: No VTE Mechan Device Prophylaxis: SCD's VTE Pharm Prophylaxis ordered?: No Code Visit Surgery Charges CPT - 54127 ICD-10 - T75.89xS, L91.0 66333 T75.89xS, L91.0 59573 T75.89xS, L91.0 63829 T75.89xS, L91.0 91177 T75.89xS, L91.0
--- NOTE | 2018-11-12 12:51 | DCINST_ITS ---
You will use the following diet at home:: No restrictions Discharge Activity: May not drive while taking narcotic pain medications., May Shower - in two days., - - keep head elevated. no heavy lifting. May shower in (days): 2 May resume sexual activity in: 10-14 days Weight Bearing Status: Weight bearing as tolerated Lifting Restrictions: 20 lbs. Keep extremity elevated above heart level: - - elevate head. Allergies/Adverse Reactions: Allergies morphine Adverse Reaction (Verified 11/07/18 15:53) Hives AT IV SITE Medications to take at Discharge Clindamycin HCl [Cleocin] 300 mg PO TID #21 cap 11/12/18 Oxycodone HCl/Acetaminophen [Percocet 5/325] 1 tab PO Q4H PRN PRN 7 Days #40 tab 11/12/18 The following prescriptions were given: Oxycodone HCl/Acetaminophen [Percocet 5/325] 1 tab PO Q4H PRN PRN 7 Days #40 tab PRN Reason: Pain Clindamycin HCl [Cleocin] 300 mg PO TID #21 cap Primary Care Physician: Morgan Saunders MD [Primary Care Provider] - Test Results: Test results from this visit will be discussed in further detail at your follow- up appointment, if applicable. Please Follow Up With: Chapincito Baldwin MD When: one week. call [phone] for appt. Proposed Discharge Date: 11/12/18
== END 2018-11-12 15:10 | disposition home or self-care (01) ==
LOC: SDC 08:25 → AC 08:26
PROVIDERS: Anesthesiology; Family Provider Family Medicine; PCP Family Medicine; Referring Provider Surgery; Visit Provider Surgery
PROC: (CPT 14060; principal; 2018-11-12 09:40)
DX: T75.89XS Other specified effects of external causes, sequela (principal); L91.0 Hypertrophic scar
CPT/HCPCS: 00300; 14060; 15275; 69110; 81025; 87070; 87075; 87077; 87102; 87176; 87186; 87205; 87206; 88305; J7120; J2405; Q4116